=== PATIENT | male | born 1965 | race Caucasian/White ===

== ENCOUNTER 2017-10-07 10:48 | Emergency (ER) | payer OTHER, SELFPAY ==
[2017-10-07 11:05] VITALS: BP 124/88; PULSE 73; RESP 20; TEMP 36.8; O2SAT 96; BMI 28.6
--- NOTE | 2017-10-07 11:07 | XR_ITS ---
XR ribs LT min 3V w CXR1V Ordering Physician: Apolonia Capps Patient Age: 52 years: Male HISTORY: ITS.REASON: RIB PAIN TECHNIQUE: Oblique views left ribs along with AP chest above and below diaphragm. Ribs COMPARISON : February 2016 chest FINDINGS Left ribs appear intact with no fracture nor lesion left lung remains clear with no pneumothorax. No pleural effusion. Chest wall and oblique views T-spine grossly unremarkable. Small stable calcified renal right base. The previous density focal pneumonia seen on 2016 CXR has completely resolved. Underlying left keyana appears normal as well IMPRESSION: ......... Negative left ribs. No fracture. No lesion Lungs clear no active disease.
--- NOTE | 2017-10-07 11:08 | XR_ITS ---
XR lumbar spine 2-3V Ordering Physician: Apolonia Capps Patient Age: 52 years: Male HISTORY: ITS.REASON: PAIN TECHNIQUE: 5 view lumbar spine series. COMPARISON : FINDINGS The lumbar vertebral bodies are intact with no compression fracture. Degenerative disc space narrowing and spondylosis most evident L5/S1.. Posterior hypertrophic endplate ridging is most notable at this this level. The disc and marginal osteophytes at this level likely due to indents the anterior thecal sac.. Generous Degenerative, hypertrophic facet changes bilaterally at this L5/S1 level as well. L4/5. Disc intact with only borderline narrowing. Anterior marginal osteophytes most evident at at L4 and L5 level. Also anteriorly at T11/12. The pedicles are intact. Transverse processes unremarkable on plain film. SI joints unremarkable. IMPRESSION: Degenerative changes most evident at L5/S1 Degenerative disc changes & spondylosis most pronounced at L5/S1. Also facet hypertrophy most evident at this level .
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
[2017-10-07 12:03] VITALS: BP 136/88; PULSE 67
--- NOTE | 2017-10-07 12:06 | PC.NURSE ---
orthos done. laying b/p 136/88 p 67 sitting 141/81 p 68 standing 127/83 p 72
[2017-10-07 12:08] VITALS: BP 128/62; PULSE 68; RESP 20; TEMP 36.8; O2SAT 97
[2017-10-07 12:15] VITALS: BP 124/88; PULSE 73; RESP 20; TEMP 36.8; O2SAT 96; BMI 28.7
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
--- NOTE | 2017-10-07 12:18 | CT_ITS ---
CT thoracic spine wo con Ordering Physician: Apolonia Capps Patient Age: 52 years: Male HISTORY: ITS.REASON: RIB FXpain lower left chest. TECHNIQUE: Helical CT scanning performed through the thoracic spine with sagittal and coronal reconstructions on CT workstation. COMPARISON : Left Rib series and lumbar spine 2 view from today . Also chest film 03/27/2016. FINDINGS . . C6/7. Degenerative disc space narrowing with mild cervical spondylosis. Early anterior marginal osteophytes lowermost C-spine The thoracic vertebra from T1 through T10 appear intact. No compression fractures in these regions. Early intramarginal osteophytes. Disc spaces fairly well maintained. The facets and spinous processes appear satisfactory. At T11 there is some subtle irregularity at the anterior cortex.. This appearance was not seen on prior chest film where as we see a double density line here on today's lumbar spine pain fell. Also we again see the slight cortical irregularity on today's CT. Findings are suspect for very subtle microfracture through the anterior cortex of T11. No significant loss of height or compression otherwise appreciable.. Posteriorly T11 is unremarkable. Disc at T10-11 T11/12 intact. Posterior elements intact. The superior endplate at T11 and T12 demonstrate minor Schmorl's node formation. No superior endplate compression. At specifically note that T12 and L1 appear intact on these views. The other significant feature is the blood overlying the partially imaged spleen. Although this could be related to prominent bleeding related to the left 11th rib fracture I would recommend CT abdomen contrast to better visualize and evaluate the spleen given the trauma to this region. The lateral left 11th rib fracture is not included on these CT images but due to its far lateral position.. Other posterior ribs appear intact. IMPRESSION 1. Only note Very subtle cortical irregularity anterior cortex T11 which. Moderately Suspect for extremely minor hairline fracture through anterior cortex T11 on final review. This is a change from old previous lateral plain films chest as well 2. No Significant bleeding appears along the posterior aspect of the spleen & lateral posterior abdominal wall.. This may be related far left lateral left 11th rib fracture, which is not included on this study due to its lateral position ... Recommend a CT abdomen with contrast to better evaluate spleen Findings discussed with Dr. cabrera
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
[2017-10-07 13:44] LABS: Alanine Aminotransferase 37 U/L (12-78); Albumin Level 3.9 gm/dL (3.4-5.0); Albumin/Globulin Ratio 1.2 (1.1-1.8); Alkaline Phosphatase 57 U/L (46-116); Anion Gap 11.4 mEq/L (5-15); Bilirubin,Total 0.6 mg/dL (0.2-1.0); Blood Urea Nitrogen 10 mg/dL (7-18); Calcium 8.5 mg/dL (8.5-10.1); Carbon Dioxide 28 mmol/L (21.0-32.0); Chloride 105 mmol/L (98-107); Creatinine Clearance Estimated 93 mL/min (0-300); Creatinine,Serum 1.12 mg/dL (0.70-1.30); Estimated Glomerular Filt Rate 69 ml/min (>60); GFR (African American) 84 ML/MIN (>60); Globulin 3.2 gm/dl (1.3-3.2); Glucose 140 mg/dL (74-106); Lipase 167 u/L (73-393); Sodium 140 mmol/L (136-145); Total Protein,Serum 7.1 gm/dL (6.4-8.2)
[2017-10-07 13:47] LABS: Aspartate Amino Transferase 25 U/L (15-37); Potassium 4.4 mmoL/L (3.5-5.1)
[2017-10-07 13:50] LABS: Basophils % 0.2 % (0.1-2.0); Eosinophils # 0.1 K/mm3 (0.0-0.4); Eosinophils % 1.4 % (0.1-12.0); Hematocrit 45.3 % (42.0-52.0); Hemoglobin 15.5 g/dL (14.1-18.0); Lymphocytes # 1.3 K/mm3 (0.7-4.5); Lymphocytes % 17.5 K/mm3 (10-50); Mean Corpuscular HGB Conc 34.2 g/dL (31.8-35.4); Mean Corpuscular Hemoglobin 29.2 pg (27.0-31.2); Mean Corpuscular Volume 85.2 fl (80-94); Mean Platelet Volume 9.9 fl (7.4-10.4); Monocytes # 0.4 K/mm3 (0.1-1.0); Monocytes % 5.7 % (1.7-9.3); Neutrophils # 5.3 K/mm3 (1.8-7.8); Neutrophils % 75.2 % (37.0-80.0); Platelet Count 137 K/mm3 (142-424); Red Blood Count 5.32 M/mm3 (4.60-6.20); Red Cell Distribution Width 13.3 % (11.5-17.5); White Blood Count 7.1 K/mm3 (4.8-10.8)
[2017-10-07 15:05] VITALS: BP 124/79; PULSE 76; RESP 16; TEMP 36.7; O2SAT 97
== END 2017-10-07 16:02 | disposition home or self-care (01) ==
LOC: UTC 10:57 → ER 10:59 → UTC 10:59 → ER 10:59 → UTC 11:00
PROVIDERS: Emergency Medicine; Emergency Provider Nurse Practitioner; Family Provider Family Medicine; PCP Family Medicine
DX: S22.32XA Fracture of one rib, left side, initial encounter for closed fracture (principal); S22.089A Unspecified fracture of T11-T12 vertebra, initial encounter for closed fracture; S30.1XXA Contusion of abdominal wall, initial encounter; Y04.2XXA Assault by strike against or bumped into by another person, initial encounter; Y92.69 Other specified industrial and construction area as the place of occurrence of the external cause; Y99.0 Civilian activity done for income or pay
CPT/HCPCS: 71101; 72100; 72128; 72131; 74177; 80053; 83690; 85025; 99282; 99291

== ENCOUNTER 2017-10-20 07:53 | Emergency (ER) | payer SELFPAY ==
[2017-10-20 07:58] VITALS: BP 104/70; PULSE 77; RESP 18; TEMP 36.9; O2SAT 97; BMI 28.1
--- NOTE | 2017-10-20 08:07 | XR_ITS ---
XR chest 2V HISTORY: ITS.REASON: COUGH ORDERING PHYSICIAN: Abdi Omalley MD PATIENT AGE: 52 years COMPARISON: 03/27/2016 FINDINGS: The cardiomediastinal silhouette and pulmonary vascularity are within normal limits. The lungs are clear without infiltrates, suspicious nodules, or pleural effusions. No acute bony abnormalities. IMPRESSION: Negative chest, no acute finding
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
[2017-10-20 08:57] VITALS: BP 132/80; PULSE 75; RESP 18; TEMP 36.7; O2SAT 98
== END 2017-10-20 08:54 | disposition home or self-care (01) ==
PROVIDERS: Emergency Provider Emergency Medicine; Family Provider Family Medicine; PCP Family Medicine
DX: J20.9 Acute bronchitis, unspecified (principal); F17.290 Nicotine dependence, other tobacco product, uncomplicated
CPT/HCPCS: 71046; 96372; 99282

== ENCOUNTER → 2019-01-16 10:42 | Outpatient (CLI) | payer OTHER, SELFPAY ==
--- NOTE | 2019-01-16 10:48 | MR_ITS ---
MR elbow RT wo con CLINICAL INDICATION: Pain and swelling in the bicipital region of the arm with bruising following a lifting injury ITS.REASON: bicep tendon rupture ORDERING PHYSICIAN: Mago Bowles MD PATIENT AGE: 53 years Comparison: 01/13/2019 TECHNIQUE: Routine multiplanar multiecho sequences are performed without contrast. FINDINGS: There is a tear of the distal aspect of the long head of the biceps tendon. This is approximately 1 cm proximal to the expected area of insertion of the tendon with 1 cm retraction of the tendinous fibers. The brachialis tendon appears intact. There is mild degree of motion artifact. Ligamentous evaluation is somewhat difficult. The ulnar collateral and lateral collateral ligaments appear intact. Increased T2 signal present along the medial aspect of the elbow at the area of the common flexor tendon consistent with medial epicondylitis. The common extensor tendon has an unremarkable appearance. IMPRESSION: 1. Complete tear of the distal aspect of the bicipital tendon with 1 cm retraction of the tendon fibers. 2. Findings compatible with medial epicondylitis
[2019-01-16 15:42] LABS: Basophils % 0.5 % (0.1-2.0); Eosinophils # 0.1 K/mm3 (0.0-0.4); Eosinophils % 2.2 % (0.1-12.0); Hematocrit 44.5 % (42.0-52.0); Hemoglobin 15.1 g/dL (14.1-18.0); Lymphocytes # 1.8 K/mm3 (0.7-4.5); Lymphocytes % 29.6 % (10-50); Mean Corpuscular HGB Conc 33.9 g/dL (31.8-35.4); Mean Corpuscular Hemoglobin 27.9 pg (27.0-31.2); Mean Corpuscular Volume 82.3 fl (80-94); Mean Platelet Volume 10.3 fl (7.4-10.4); Monocytes # 0.4 K/mm3 (0.1-1.0); Monocytes % 5.7 % (1.7-9.3); Neutrophils # 3.7 K/mm3 (1.8-7.8); Platelet Count 171 K/mm3 (142-424); Red Cell Distribution Width 13.4 % (11.5-17.5)
[2019-01-16 16:58] LABS: Alanine Aminotransferase 34 U/L (12-78); Albumin Level 3.8 gm/dL (3.4-5.0); Albumin/Globulin Ratio 1.3 (1.1-1.8); Alkaline Phosphatase 71 U/L (46-116); Anion Gap 12.7 mEq/L (5-15); Aspartate Amino Transferase 22 U/L (15-37); Bilirubin,Total 0.5 mg/dL (0.2-1.0); Blood Urea Nitrogen 13 mg/dL (7-18); Calcium 8.8 mg/dL (8.5-10.1); Carbon Dioxide 30 mmol/L (21.0-32.0); Chloride 105 mmol/L (98-107); Creatinine,Serum 1.04 mg/dL (0.70-1.30); Estimated Glomerular Filt Rate 75 ml/min (>60); GFR (African American) 91 ML/MIN (>60); Glucose 92 mg/dL (74-106); Potassium 4.7 mmoL/L (3.5-5.1); Sodium 143 mmol/L (136-145); Total Protein,Serum 6.8 gm/dL (6.4-8.2)
== END ==
PROVIDERS: PCP Family Medicine; Visit Provider Orthopaedic Surgery
DX: Z01.818 Encounter for other preprocedural examination (principal); S46.219A Strain of muscle, fascia and tendon of other parts of biceps, unspecified arm, initial encounter
CPT/HCPCS: 36415; 73221; 80053; 85025; 93005

== ENCOUNTER → 2019-02-13 13:20 | Outpatient (CLI) | payer OTHER, SELFPAY ==
--- NOTE | 2019-02-13 13:31 | XR_ITS ---
XR elbow RT min 3V HISTORY: ITS.REASON: right distal biceps tendon rupture, postop evaluation ORDERING PHYSICIAN: Mago Bowles MD PATIENT AGE: 53 years COMPARISON: None FINDINGS: An osteotomy defect is present within the proximal aspect of the radius with a small metallic buttons along the dorsal aspect of the radius at this region from the biceps tendon repair. Faint density is present in the antecubital fossa as with postsurgical changes. There is good alignment. Hypertrophic changes present at the olecranon area. IMPRESSION: Postsurgical changes as described above
== END ==
PROVIDERS: PCP Family Medicine; Visit Provider Orthopaedic Surgery
DX: S46.211A Strain of muscle, fascia and tendon of other parts of biceps, right arm, initial encounter (principal)
CPT/HCPCS: 73080

== ENCOUNTER → 2019-02-14 07:46 | Outpatient (CLI) | payer OTHER, SELFPAY ==
--- NOTE | 2019-02-14 07:48 | MR_ITS ---
MR shoulder RT wo con COMPARISON: None HISTORY: Right shoulder pain, biceps tendon rupture with tendon repair now with swelling from the elbow up. Evaluate proximal aspect of the biceps tendon ORDERING PHYSICIAN: Mago Bowles MD PATIENT AGE: 53 years TECHNIQUE: Routine multiplanar multiecho sequences are performed without contrast. FINDINGS: There are hypertrophic changes of the acromioclavicular joint with subacromial stenosis and some impingement upon the supraspinatus tendon with increased T2 signal and thickening of the supraspinatus tendon consistent with tendinopathy/tendinosis. There is a small focal area of increased T2 signal distally and posteriorly which may represent a small partial tear. There is moderate subacromial stenosis. These infraspinatus tendon appears intact as does the subscapularis and teres minor tendon. The long head of the biceps tendon is not visualized and presumed torn. A small amount of fluid within the shoulder joint and subcoracoid recess. There does appear to be a partial tear of the posterior glenoid labrum suggesting a reverse Bankart lesion. There is a small area of increased T2 signal along the anterior aspect of the head of the humerus which could represent a reverse Hill-Sachs deformity. This could also represent a small subarticular cyst IMPRESSION: 1. The bicipital tendon to the long head of the biceps is not visualized within the expected location consistent with tear of the long head of the biceps. 2. Tendinopathy/tendinosis of the supraspinatus tendon with subacromial stenosis and possible partial tear distally. 3. There is a suspected reversed Bankart lesion of the posterior labrum and possible reverse Hill-Sachs lesion of the humeral head
--- NOTE | 2019-02-14 07:48 | MR_ITS ---
MR elbow RT wo con CLINICAL INDICATION: Recent biceps tendon rupture with repair now with new pain and swelling ITS.REASON: biceps tendon rupture, now pain in elbow ORDERING PHYSICIAN: Mago Bowles MD PATIENT AGE: 53 years Comparison: 01/16/2019 TECHNIQUE: Multiplanar multiecho sequences are performed without contrast FINDINGS: There are edematous changes in the antecubital fossa from the recent biceps tendon surgery/repair. A nonmetallic screw is present in the proximal aspect of the radius with a metallic button along the lateral aspect of the proximal radius causing some mild artifact. There is some artifact from some metallic fragments in the surgical bed. The bicipital tendon does appear to be discontinuous consistent with tear of the bicipital tendon. The tendon is retracted by approximately 3 cm. The brachialis tendon appears intact. IMPRESSION: There are postsurgical changes. The bicipital tendon does appear to be torn with retraction of the tendon fibers by approximately 3 cm with postsurgical edema noted
== END ==
PROVIDERS: PCP Family Medicine; Visit Provider Orthopaedic Surgery
DX: S46.211A Strain of muscle, fascia and tendon of other parts of biceps, right arm, initial encounter (principal)
CPT/HCPCS: 73221

== ENCOUNTER 2019-02-18 14:30 | Outpatient (RCR) | payer OTHER, SELFPAY ==
--- NOTE | 2019-01-22 11:22 | HMH.OTOPEV ---
OT Inpatient Evaluation Rehab OT Outpatient Eval Start: 01/22/19 10:31 Freq: Status: Active Protocol: Document 01/22/19 10:32 TFRY (Rec: 01/22/19 11:22 TFRY [id number]) Electronically Signed By Mitali Pleitez, OT 01/22/19 10:32 Outpatient Therapy Subjective History Subjective History This is a 53 year old left handed male referred to occupational therapy as patient is status post right distal biceps repair with possible PIN palsy on 01/17/19. Patient reported he initial injuried on 01/11/19 at work when he was lifting a pipe. Chief Complaint Pain Symptom Type Ache,Sharp Symptoms Relieved By Rest/Positioning Prior Functional Limitations None Current Functional Limitations Reaching,Lifting,Housework, Dressing,Sleeping Symptom Description Activity Dependent Level of pain today (0-10) 2 Pain scale - at its best (0-10) 0 Pain scale - at its worst (0-10) 9 Shoulder/Elbow Eval Shoulder Objective Measurements Elbow Objective Measurements Elbow ROM Right decreased ROM elbow exam standard right pain with active ROM elbow exam standard right pain with passive ROM elbow exam right standard Elbow Extension Active Range of Motion ( 0 degrees) Elbow Extension Passive Range of Motion 0 (degrees) Elbow Flexion Active Range of Motion ( 90 degrees) Elbow Flexion Passive Range of Motion ( 90 degrees) Elbow Pronation of Forearm Range of 0 Motion (degrees) Elbow Supination of Forearm Range of 0 Motion (degrees) Elbow Supination of Forearm Range of 0 Motion (degrees) Elbow ROM Limitations Muscle Weakness,Muscle Tone Wrist/Hand Eval Wrist Range of Motion Wrist Limitations of Range of Motion Muscle Weakness,Pain Wrist Extension Active Range of Motion ( -40 degrees) Wrist Extension Passive Range of Motion WFL (degrees) Wrist Flexion Active Range of Motion ( 60 degrees) Wrist Flexion Passive Range of Motion ( WFL degrees) Forearm Supination Active Range of 0 Motion (degrees) Forearm Supination Passive Range of 0 Motion (degrees) Forearm Pronation Active Range of Motion 0 (degrees) Forearm Pronation Passive Range of 0 Motion (degrees) Finger Range of Motion Right Little Finger Finger ROM Limitations Muscle Weakness F
== END 2019-02-18 14:35 | disposition home or self-care (01) ==
LOC: OT 14:30
PROVIDERS: Visit Provider Orthopaedic Surgery
DX: S46.211D Strain of muscle, fascia and tendon of other parts of biceps, right arm, subsequent encounter (principal); S54.8X Injury of other nerves at forearm level
CPT/HCPCS: 97140; 97166

== ENCOUNTER → 2019-07-10 09:21 | Outpatient (CLI) | payer OTHER, SELFPAY ==
[2019-07-10 09:49] LABS: Basophils % 0.4 % (0.1-2.0); Eosinophils # 0.1 K/mm3 (0.0-0.4); Eosinophils % 2.3 % (0.1-12.0); Hematocrit 45.7 % (42.0-52.0); Hemoglobin 15.1 g/dL (14.1-18.0); Lymphocytes # 1.3 K/mm3 (0.7-4.5); Lymphocytes % 25.2 % (10-50); Mean Corpuscular Hemoglobin 29.1 pg (27.0-31.2); Mean Corpuscular Volume 88.1 fl (80-94); Monocytes # 0.3 K/mm3 (0.1-1.0); Monocytes % 5.9 % (1.7-9.3); Neutrophils # 3.4 K/mm3 (1.8-7.8); Neutrophils % 66.2 % (37.0-80.0); Platelet Count 145 K/mm3 (142-424); Red Blood Count 5.19 M/mm3 (4.60-6.20); Red Cell Distribution Width 13.8 % (11.5-17.5); White Blood Count 5.1 K/mm3 (4.8-10.8)
--- NOTE | 2019-07-10 09:50 | ECG_ITS ---
APPROVED REPORT Exam: Resting ECG HR:56 bpm ECG Measurements Heart Rate 56 AXES MT 188 P 32 QRSd 94 QRS 41 QT 398 T 34 QTc 384 <Conclusion> Sinus bradycardia Otherwise normal ECG Electronically signed by : Gutierrez Rader, 07/10/2019 12:04:15
[2019-07-10 12:29] LABS: Alanine Aminotransferase 40 U/L (12-78); Albumin Level 3.8 gm/dL (3.4-5.0); Albumin/Globulin Ratio 1.3 (1.1-1.8); Alkaline Phosphatase 65 U/L (46-116); Anion Gap 14.2 mEq/L (5-15); Aspartate Amino Transferase 18 U/L (15-37); Bilirubin,Total 0.4 mg/dL (0.2-1.0); Blood Urea Nitrogen 13 mg/dL (7-18); Calcium 8.3 mg/dL (8.5-10.1); Carbon Dioxide 26 mmol/L (21.0-32.0); Chloride 107 mmol/L (98-107); Creatinine,Serum 0.99 mg/dL (0.70-1.30); Estimated Glomerular Filt Rate 80 ml/min (>60); GFR (African American) 96 ML/MIN (>60); Globulin 2.9 gm/dl (1.3-3.2); Glucose 97 mg/dL (74-106); Potassium 4.2 mmoL/L (3.5-5.1); Sodium 143 mmol/L (136-145); Total Protein,Serum 6.7 gm/dL (6.4-8.2)
== END ==
PROVIDERS: Visit Provider Orthopaedic Surgery
DX: R79.9 Abnormal finding of blood chemistry, unspecified (principal); R07.9 Chest pain, unspecified
CPT/HCPCS: 36415; 80053; 85025; 93005

== ENCOUNTER 2019-12-12 08:00 | Outpatient (RCR) | payer OTHER, SELFPAY | END 2019-12-12 08:05 | disposition home or self-care (01) | LOC: PT 08:00 | PROVIDERS: Visit Provider Orthopaedic Surgery | DX: M75.21 Bicipital tendinitis, right shoulder (principal) | CPT/HCPCS: 97010; 97014; 97033; 97110; 97140; 97163; 97164; G0283 ==

== ENCOUNTER 2020-05-21 16:47 | Emergency (ER) | payer BC, SELFPAY ==
[2020-05-21 17:43] VITALS: BP 135/73; PULSE 83; RESP 18; TEMP 36.6; O2SAT 97; BMI 29.7
--- NOTE | 2020-05-21 18:15 | HMH.EDUTC ---
[facility] [place] [facility] Disposition Clinical Impression: Close exposure to COVID-19 virus, Encounter for laboratory testing for COVID-19 virus Disposition: Home, Self-Care Condition on Discharge: Good Instructions: Preventing the Spread of Coronavirus Discharge Instructions Additional Instructions: *Monitor Temp, Over the counter Motrin or Tylenol as directed/as needed Tylenol every 4 hours and Motrin every 6 hours (as long as your family doctor has told you that you can take it) for fever or pain. and straight to ER if unable to lower temp less than 101.0 after medication given *Warm salt water gargles may help to soothe the throat *Throat Lozenges *Warm fluids like tea with honey may help to soothe the throat *Sleep elevated *Humidifier/Vaporizer Follow up IMMEDIATELY for new or worsening symptoms or no Noticeable improvement over the next 48-72 hours. 911 for difficulty breathing or swallowing You was tested for today for COVID19 your test result should be back later this evening, you may call back later this evening to see if your test results are back and the result You was given a handout with instructions for Self Quarantine and Self isolation for while you wait on test results and what to do if they are positive Referrals: Rex Suh MD [Primary Care Provider] - As needed Forms: Work/School Release Time of Disposition: 18:20 Medical Decision Making - Ja Inquiry Pt receiving controlled substance: No Ja was queried for this patient: No Vital Signs: 05/21/20 17:43 Temperature 97.8 F Temperature Source Oral Pulse Rate [Radial] 83 Respiratory Rate 18 Blood Pressure [Right Arm] 135/73 Blood Pressure Mean [Right Arm] 93 Blood Pressure Source [Right Arm] Automatic Cuff Blood Pressure Position [Right Arm] Sitting 02 Sat by Pulse Oximetry 97 Oxygen Delivery Method Room Air Orders (Tests/Meds): ORDERS Category Date Time Status Covid-19 Nasal PCR ([facility]) Routine Lab 05/21/20 17:40 Received [facility] [place] [facility] HPI - General Stated complaint: covid test Time Seen by Provider: 05/21/20 18:15 Mode of Arrival: Ambulatory Source of Information: Patient Limitations: No Limitations Description of Symptoms (Recalled from Triage Doc. by RN): wants covid test. LOMAS HEENT Symptoms (Recalled from RN notes): No Resp Symptoms (Recalled from RN notes): No Skin Symptoms (Recalled from RN notes): No MS Symptoms (Recalled from RN notes): Yes Functional Status (Recalled from RN notes): wnl - History of Present Illness Provider Complaint: Patient states that he was recently exposed to his daughter that tested positive for COVID and he has had a headache all day and feeling achy so he come in to get checked and tested for COVID - Related Data Home Medications Medication Instructions Recorded Confirmed atenoloL [Atenolol 50mg Tab] 50 mg PO DAILY 01/13/19 02/15/19 Allergies Allergy/AdvReac Type Severity Reaction Status Date / Time No Known Allergies Allergy Verified 02/15/19 14:45 - Worker's Comp Is this a Worker's Comp case?: No [facility] History - Hepatitis A Screen Drug use history?: No High risk sexual behaviors?: No History of sexually transmitted infection?: No Currently employed?: No Childcare worker?: No Do you have indoor plumbing?: Yes Do you have electricity?: Yes Attestation statement:: This patient has been screened for Hepatitis A risk factors. I have reviewed the patient's past medical history: Yes Medical History: Denies:: Cancer, Diabetes Mellitus Type 1, Diabetes Mellitus Type 2, Internal Pacemaker, MRSA, Seizures Other Medical History: Denies: Blood Transfusion Reaction Laterality Cases: Bilateral: Carpal Tunnel Release Other Surgeries: Yes: Other. No: Pacemaker Amputation: No Fractures: Yes (lumbar) - Social History Smoking Status: Unknown if ever smoked Tobacco Type: cigars # Packs/Day (cigarettes): 1 Alcohol Intake: never Alcohol Intake Frequency:: 0-2 drinks per day Occupational S
[2020-05-21 18:33] VITALS: BP 135/73; PULSE 83; RESP 18; TEMP 36.6; O2SAT 97
--- NOTE | 2020-05-22 09:13 | PC.NURSE ---
Pt notified of positive covid result at this time
== END 2020-05-21 18:34 | disposition home or self-care (01) ==
PROVIDERS: Emergency Provider Nurse Practitioner; PCP Family Medicine
DX: U07.1 COVID-19 (principal)
CPT/HCPCS: 99201; U0003

== ENCOUNTER → 2020-07-10 14:16 | Outpatient (CLI) | payer BC, SELFPAY ==
[2020-07-13 09:12] LABS: Chloride 105 mmol/L (98-107); Potassium 4.3 mmoL/L (3.5-5.1); Sodium 141 mmol/L (136-145)
[2020-07-13 09:15] LABS: Alanine Aminotransferase 29 U/L (12-78); Albumin Level 4.7 g/dl (3.5-5.0); Albumin/Globulin Ratio 1.6 (1.1-1.8); Alkaline Phosphatase 57 U/L (38-126); Anion Gap 13.3 mEq/L (5-15); Aspartate Amino Transferase 30 U/L (17-59); Blood Urea Nitrogen 15 mg/dl (9-20); Carbon Dioxide 27 mmol/L (22.0-30.0); Cholesterol 181 mg/dl (140-200); Estimated Glomerular Filt Rate 70 ml/min (>60); GFR (African American) 85 ML/MIN (>60); Total Protein,Serum 7.7 g/dl (6.3-8.2); Triglycerides 214 mg/dl (30-150); VLDL Cholesterol 43 mg/dL (0-40)
[2020-07-13 09:16] LABS: Calcium 9.6 mg/dl (8.4-10.2); Chol/HDL Ratio 3.6 (1-3.5); Glucose 103 mg/dl (74-100); HDL Cholesterol 50 mg/dl (40-60)
[2020-07-13 09:27] LABS: Direct LDL Cholesterol 90.75 mg/dL (100-129)
[2020-07-13 09:32] LABS: T4 (Thyroxine) 7.3 ug/dl (5.53-11.0)
[2020-07-13 09:40] LABS: 25-OH Vitamin D, Total 24.6 ng/mL (30-100)
[2020-07-13 09:46] LABS: Thyroid Stimulating Hormone 3.09 uIU/mL (0.465-4.68)
[2020-07-13 10:01] LABS: Hematocrit 47.7 % (42.0-52.0); Hemoglobin 16.6 g/dL (14.1-18.0)
[2020-07-13 10:02] LABS: Basophils % 0.5 % (0.1-2.0); Eosinophils # 0.1 K/mm3 (0.0-0.4); Eosinophils % 1.4 % (0.1-12.0); Mean Corpuscular HGB Conc 34.8 g/dL (31.8-35.4); Mean Corpuscular Hemoglobin 30.7 pg (27.0-31.2); Mean Corpuscular Volume 88.3 fl (80-94); Mean Platelet Volume 12.4 fl (7.4-10.4); Monocytes # 0.3 K/mm3 (0.1-1.0); Monocytes % 5.4 % (1.7-9.3); Neutrophils # 4.1 K/mm3 (1.8-7.8); Platelet Count 144 K/mm3 (142-424); Red Cell Distribution Width 13.8 % (11.5-17.5)
[2020-07-13 10:03] LABS: Lymphocytes # 1.5 K/mm3 (0.7-4.5); Lymphocytes % 24.8 % (10-50)
[2020-07-14 11:18] LABS: PSA, Free 0.17 ng/mL; Prostate Specific Ag 0.6 ng/mL (0.0-4.0)
== END ==
PROVIDERS: Visit Provider Family Medicine
DX: R10.9 Unspecified abdominal pain (principal); H55.09 Other forms of nystagmus; E55.9 Vitamin D deficiency, unspecified; Z12.5 Encounter for screening for malignant neoplasm of prostate; Z20.5 Contact with and (suspected) exposure to viral hepatitis
CPT/HCPCS: 80053; 80061; 82306; 84153; 84154; 84436; 84443; 85025; 87522

== ENCOUNTER → 2020-11-26 11:12 | Outpatient (CLI) | payer BC, SELFPAY ==
--- NOTE | 2020-11-26 11:26 | XR_ITS ---
PROCEDURE: XR FOOT LT MIN 3V CLINICAL INDICATION: LT FOOT PAIN COMPARISON: No exams were available for comparison FINDINGS: Hallux valgus with osteoarthritis of the 1st MTP joint and bunion formation at the distal aspect of the 1st metatarsal. No acute fracture or dislocation. No lytic or blastic change. Other findings:None. IMPRESSION: Hallux valgus with osteoarthritis of the 1st MTP joint and bunion formation at the distal aspect of the 1st metatarsal. Dictated by: Yovani Cuellar MD 11/26/2020 12:36 Yovani Cuellar MD in [place] 11/26/2020 12:36
== END ==
PROVIDERS: PCP Family Medicine; Visit Provider Family Medicine
DX: M79.672 Pain in left foot (principal)
CPT/HCPCS: 73630

== ENCOUNTER → 2021-06-23 11:17 | Outpatient (CLI) | payer BC, SELFPAY ==
--- NOTE | 2021-06-23 11:20 | XR_ITS ---
PROCEDURE: XR CHEST 2V CLINICAL HISTORY: cough COMPARISON: CR CXR CHEST(2 VIEWS-NOT PORTABLE) from 03/27/2016 CR [id number] XR ribs LT min 3V w CXR1V from 10/07/2017 CR CXR2V XR chest 2V from 10/20/2017 FINDINGS: The cardiomediastinal silhouette and pulmonary vascularity are within normal limits. The lungs are clear without infiltrates, suspicious nodules, or pleural effusions. No acute bony abnormalities. IMPRESSION: No acute findings. Dictated by: Yovani Cuellar MD 06/23/2021 14:50 Yovani Cuellar MD in [place] 06/23/2021 14:50
== END ==
PROVIDERS: PCP Nurse Practitioner Family; Visit Provider Nurse Practitioner Family
DX: Z86.16 Personal history of COVID-19 (principal)
CPT/HCPCS: 71046

== ENCOUNTER → 2022-03-31 17:08 | Outpatient (CLI) | payer BC, SELFPAY ==
[2022-03-31 14:43] LABS: Basophils % 0.7 % (0.1-2.0); Eosinophils # 0.1 K/mm3 (0.0-0.4); Eosinophils % 2.9 % (0.1-12.0); Hematocrit 46.9 % (42.0-52.0); Hemoglobin 15.1 g/dL (14.1-18.0); Lymphocytes # 1.5 K/mm3 (0.7-4.5); Lymphocytes % 29.4 % (10-50); Mean Corpuscular HGB Conc 32.2 g/dL (31.8-35.4); Mean Corpuscular Hemoglobin 28.9 pg (27.0-31.2); Mean Corpuscular Volume 89.7 fl (80-94); Mean Platelet Volume 11.8 fl (7.4-10.4); Monocytes # 0.3 K/mm3 (0.1-1.0); Monocytes % 6.3 % (1.7-9.3); Neutrophils # 3.1 K/mm3 (1.8-7.8); Neutrophils % 60.7 % (37.0-80.0); Platelet Count 130 K/mm3 (142-424); Red Blood Count 5.23 M/mm3 (4.60-6.20); Red Cell Distribution Width 14.2 % (11.5-17.5); White Blood Count 5.1 K/mm3 (4.8-10.8)
[2022-03-31 14:48] LABS: Alanine Aminotransferase 32 U/L (12-78); Albumin Level 4.1 g/dl (3.5-5.0); Albumin/Globulin Ratio 1.5 (1.1-1.8); Alkaline Phosphatase 62 U/L (38-126); Anion Gap 12.2 mEq/L (5-15); Aspartate Amino Transferase 32 U/L (17-59); Bilirubin,Total 0.6 mg/dl (0.2-1.3); Blood Urea Nitrogen 13 mg/dl (9-20); Calcium 9.3 mg/dl (8.4-10.2); Carbon Dioxide 23 mmol/L (22.0-30.0); Chloride 109 mmol/L (98-107); Cholesterol 174 mg/dl (140-200); Estimated Glomerular Filt Rate 88 ml/min (>60); GFR (African American) 106 ML/MIN (>60); Globulin 2.7 g/dL (1.3-3.2); Glucose 122 mg/dl (74-100); HDL Cholesterol 43 mg/dl (40-60); Potassium 4.2 mmoL/L (3.5-5.1); Sodium 140 mmol/L (136-145); Total Protein,Serum 6.8 g/dl (6.3-8.2); Triglycerides 188 mg/dl (30-150); VLDL Cholesterol 38 mg/dL (0-40)
[2022-03-31 14:53] LABS: C-Reactive Protein 0.8 mg/L (0-4)
[2022-03-31 15:10] LABS: Erythrocyte Sedimentation Rate 6 mm/hr (0-20)
[2022-03-31 15:19] LABS: Prostate Specific Ag Screen 0.6 ng/ml (0.0-4.0)
[2022-03-31 15:44] LABS: Hemoglobin A1C 5.2 % (4.0-6.0)
[2022-04-02 08:22] LABS: Direct LDL Cholesterol 86 mg/dL (100-129)
[2022-04-02 09:16] LABS: RA Latex Turbid. <10.0 IU/mL (<14.0)
[2022-04-05 19:12] LABS: Anti-Centromere B Antibodies <0.2 AI (0.0-0.9); Anti-DNA (DS) Ab Qn <1 IU/mL (0-9); Anti-Jo-1 <0.2 AI (0.0-0.9); Anti-Smith Antibody <0.2 AI (0.0-0.9); Antichromatin Antibodies <0.2 AI (0.0-0.9); Antiscleroderma-70 Antibodies <0.2 AI (0.0-0.9); RNP Antibodies 0.2 AI (0.0-0.9); Sjogren's Anti-SS-A <0.2 AI (0.0-0.9); Sjogren's Anti-SS-B <0.2 AI (0.0-0.9)
[2022-04-06 01:07] LABS: Anti-Cyclic Citrullinated Pept 4 units (0-19)
== END ==
PROVIDERS: PCP Physician Assistant; Visit Provider Physician Assistant
DX: I10 Essential (primary) hypertension (principal); R82.90 Unspecified abnormal findings in urine; M25.50 Pain in unspecified joint; R73.9 Hyperglycemia, unspecified
CPT/HCPCS: 80053; 80061; 82306; 83036; 84443; 85025; 85651; 86140; 86200; 86225; 86235; 86431; 87086; G0103

== ENCOUNTER → 2022-04-15 13:41 | Outpatient (CLI) | payer BC, SELFPAY ==
--- NOTE | 2022-04-15 13:46 | XR_ITS ---
FINAL REPORT CLINICAL HISTORY: hand injury FINDINGS: 3 views of the right hand were obtained. There is no acute fracture or dislocation. There are mild degenerative changes. There is no soft tissue abnormality. IMPRESSION: No acute process. Reviewed, Interpreted and Dictated by Champ Tinoco III, MD Transcribed by Fede Varela Authenticated and [facility]
--- NOTE | 2022-04-15 13:46 | XR_ITS ---
FINAL REPORT CLINICAL HISTORY: Right wrist/hand pain FINDINGS: 3 views of the right wrist were obtained. There is no acute fracture or dislocation. There are mild degenerative changes. There is a 3 mm calcification of uncertain significance along the volar wrist that may represent a loose body. IMPRESSION: No acute abnormality. Reviewed, Interpreted and Dictated by Champ Tinoco III, MD Transcribed by Fede Varela Authenticated and [facility]
== END ==
PROVIDERS: PCP Physician Assistant; Visit Provider Orthopaedic Surgery
DX: M25.531 Pain in right wrist (principal); M79.641 Pain in right hand
CPT/HCPCS: 73110; 73130

== ENCOUNTER 2022-04-21 10:42 | Outpatient (RCR) | payer BC, SELFPAY | END 2022-04-21 11:45 | disposition home or self-care (01) | LOC: OT 10:42 | PROVIDERS: Visit Provider Orthopaedic Surgery | DX: M79.641 Pain in right hand (principal) | CPT/HCPCS: 97763 ==

== ENCOUNTER 2023-01-22 05:58 | Emergency (ER) | payer OTHER, SELFPAY ==
[2023-01-22] VITALS (7 sets, daily range): BP systolic 135–179; BP diastolic 83–107; PULSE 94–124; RESP 16–20; TEMP 36.8; O2SAT 93–98; BMI 30.5
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
[2023-01-22 06:26] LABS: Microscopic, Urine URINE MICROSCOPIC (MICROSCOPIC)
[2023-01-22 06:28] LABS: Basophils % 0.3 % (0.1-2.0); Eosinophils # 0.1 K/mm3 (0.0-0.4); Eosinophils % 1.4 % (0.1-12.0); Hematocrit 42.8 % (42.0-52.0); Hemoglobin 14.6 g/dL (14.1-18.0); Lymphocytes # 1.2 K/mm3 (0.7-4.5); Lymphocytes % 19.4 % (10-50); Mean Corpuscular HGB Conc 34.1 g/dL (31.8-35.4); Mean Corpuscular Hemoglobin 28.8 pg (27.0-31.2); Mean Corpuscular Volume 84.3 fl (80-94); Mean Platelet Volume 10.5 fl (7.4-10.4); Monocytes # 0.3 K/mm3 (0.1-1.0); Monocytes % 5.1 % (1.7-9.3); Neutrophils # 4.5 K/mm3 (1.8-7.8); Neutrophils % 73.8 % (37.0-80.0); Platelet Count 133 K/mm3 (142-424); Red Blood Count 5.07 M/mm3 (4.60-6.20); White Blood Count 6.1 K/mm3 (4.8-10.8)
[2023-01-22 06:36] LABS: Appearance,Urine CLEAR (Clear); Bilirubin,Urine Negative (Negative); Blood, Urine Negative (Negative); Color,Urine YELLOW (Yellow); Glucose,Urine (UA) Negative (Negative); Ketones,Urine Negative (Negative); Leukocyte Esterase,Urine Negative (Negative); Nitrate,Urine Negative (Negative); Protein,Urine Negative (Negative); Urobilinogen,Urine 0.2 EU/dl (0.2)
[2023-01-22 06:37] LABS: Chloride 109 mmol/L (98-107); Potassium 3.7 mmoL/L (3.5-5.1); Sodium 144 mmol/L (136-145)
[2023-01-22 06:39] LABS: Blood Urea Nitrogen 14 mg/dl (9-20); Creatinine Clearance Estimated 75 mL/min (50-200); Estimated Glomerular Filt Rate 53 ml/min (>60); GFR (African American) 64 ML/MIN (>60)
[2023-01-22 06:40] LABS: Alanine Aminotransferase 41 U/L (12-78); Albumin Level 4.2 g/dl (3.5-5.0); Albumin/Globulin Ratio 1.5 (1.1-1.8); Alkaline Phosphatase 64 U/L (38-126); Anion Gap 13.7 mEq/L (5-15); Aspartate Amino Transferase 49 U/L (17-59); Bilirubin,Total 0.9 mg/dl (0.2-1.3); Calcium 8.5 mg/dl (8.4-10.2); Carbon Dioxide 25 mmol/L (22.0-30.0); Globulin 2.8 g/dL (1.3-3.2); Glucose 139 mg/dl (74-100)
--- NOTE | 2023-01-22 06:41 | PC.NURSE ---
Pt gone to RAD via wheelchair
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
--- NOTE | 2023-01-22 07:43 | PC.NURSE ---
rad notified of new orders
[2023-01-22 07:48] LABS: Squamous Epithelial Cell,Urine Occasional #/hpf (0-5); WBC,Urine Occasional #/hpf (0-3)
--- NOTE | 2023-01-22 07:51 | PC.NURSE ---
pt to RAD @ this time
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
--- NOTE | 2023-01-22 08:00 | PC.NURSE ---
pt back from rad
--- NOTE | 2023-01-22 08:01 | PC.NURSE ---
calling [facility]
--- NOTE | 2023-01-22 08:13 | PC.NURSE ---
SUMANTH POWELL on phone with MD from [facility]
--- NOTE | 2023-01-22 08:35 | PC.NURSE ---
[facility] arrived at this time
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
== END 2023-01-22 09:39 | disposition short-term general hospital (02) ==
PROVIDERS: Emergency Medicine; Emergency Provider Emergency Medicine; PCP Physician Assistant
DX: S12.390A Other displaced fracture of fourth cervical vertebra, initial encounter for closed fracture (principal); S22.32XA Fracture of one rib, left side, initial encounter for closed fracture; R51.9 Headache, unspecified; Y04.0XXA Assault by unarmed brawl or fight, initial encounter
CPT/HCPCS: 70450; 70486; 71045; 71260; 72125; 72128; 72131; 73000; 73030; 74177; 80053; 81001; 85025; 96361; 96374; 99285; J0131; Q9967